=== PATIENT | male | born 1960 ===

== ENCOUNTER 2018-02-03 11:17 | Emergency (ER) | payer MEDICAID ==
[2018-02-03 11:30] VITALS: BP 159/91; PULSE 61; RESP 18; TEMP 97.9; O2SAT 98
--- NOTE | 2018-02-03 11:39 | C.PDOC ---
History Of Present Illness 57 year old male with PMHx of midline lower abdominal surgery and left inguinal hernia repair presents to the ED complaining of swelling and discomfort to right groin area for many weeks but worse for the last 5 days. Denies protruding mass, fever, chills, urinary problems. Time Seen by Provider: 02/03/18 11:34 Chief Complaint (Nursing): Abnormal Skin Integrity History Per: Patient History/Exam Limitations: no limitations Onset/Duration Of Symptoms: Days (5) Current Symptoms Are (Timing): Still Present Location Of Injury: Right: Abdomen (groin ) Quality Of Symptoms: Painful, Swollen Past Medical History Reviewed: Historical Data, Nursing Documentation, Vital Signs Vital Signs: Last Vital Signs Temp 97.9 F 02/03/18 11:28 Pulse 61 02/03/18 11:28 Resp 18 02/03/18 11:28 BP 159/91 H 02/03/18 11:28 Pulse Ox 98 02/03/18 11:28 - Medical History PMH: No Chronic Diseases Surgical History: Hernia Repair Family History: States: No Known Family Hx - Social History Hx Tobacco Use: No Hx Alcohol Use: No Hx Substance Use: No - Immunization History Hx Tetanus Toxoid Vaccination: No Hx Influenza Vaccination: No Hx Pneumococcal Vaccination: No Review Of Systems Except As Marked, All Systems Reviewed And Found Negative. Constitutional: Negative for: Fever, Chills Gastrointestinal: Positive for: Abdominal Pain (right groin swelling and discomfort). Negative for: Nausea, Vomiting, Diarrhea Genitourinary: Negative for: Dysuria, Hematuria Physical Exam - Physical Exam Appears: Non-toxic, No Acute Distress Skin: Warm, Dry, No Rash Head: Normacephalic Nose: Normal Oral Mucosa: Moist Neck: Supple Chest: Symmetrical Cardiovascular: Rhythm Regular Gastrointestinal/Abdominal: Other (lower abdominal midline scar, left inguinal surgical scar, no protrusion. No hernia, lymphadenopathy, protrusions, fluctuance, or erythema to right inguinal area.) Extremity: Bilateral: Atraumatic, Normal Color And Temperature, Normal ROM Neurological/Psych: Oriented x3, Normal Speech Gait: Steady ED Course And Treatment O2 Sat by Pulse Oximetry: 98 (RA) Pulse Ox Interpretation: Normal Medical Decision Making Medical Decision Making: Plan - Ibuprofen 600mg PO On reevaluation, patient feels better. Patient instructed to use ice packs and take Ibuprofen. Patient instructed to follow up with Dr. Pappas. ? early R lower inguinal hernia developing NO abscess (per pt claim) h/o L inguinal hernia repair h/o midline lower abd surg of ? etiology (pt unclear) 5 days (or much more) discomfort R inguinal hernia area Refer for opt f/u and elective surgery Disposition Doctor Will See Patient In The: Office Counseled Patient/Family Regarding: Studies Performed, Diagnosis - Disposition Referrals: [facility] [Outside] [email or web address] [Outside] [facility] [Outside] [place] [facility] [Outside] Tru Pappas MD [Staff Provider] - Disposition: HOME/ ROUTINE Disposition Time: 11:39 Condition: GOOD Additional Instructions: bolsa de hielo 1/2 hora por hora, nada caliente Ibuprofeno 400-600 mg cada 6 horas cecy necessario [facility] con Dr. [facility]- para hacere derrell por reparacio'n electivo del hernia inguinal del lado derecho. Instructions: Inguinal and Femoral (Groin) Hernias Forms: [email or web address] ([place]er) Print Language: GERMAN - Clinical Impression Clinical Impression: Inguinal hernia - Scribe Statement The provider has reviewed the documentation as recorded by the Scribe Alicia Alvarez All medical record entries made by the Scribe were at my direction and personally dictated by me. I have reviewed the chart and agree that the record accurately reflects my personal performance of the history, physical exam, medical decision making, and the department course for this patient. I have also personally directed, reviewed, and agree with the discharge instructions and disposition.
== END 2018-02-03 11:48 | disposition home or self-care (01) ==
LOC: C.ER 11:17
DX: K40.90 Unilateral inguinal hernia, without obstruction or gangrene, not specified as recurrent (principal)